=== PATIENT | female | born 1965 | race Caucasian/White ===

== ENCOUNTER → 2022-01-26 | Outpatient (CLI) | payer BC | LOC: RAD 13:21 | DX: M25.50 Pain in unspecified joint (principal); M54.9 Dorsalgia, unspecified; M47.816 Spondylosis without myelopathy or radiculopathy, lumbar region | CPT/HCPCS: 72110; 73522; 73562 ==

== ENCOUNTER → 2022-02-03 | Outpatient (CLI) | payer BC | LOC: KOH-I 13:50 | DX: M54.9 Dorsalgia, unspecified (principal); R22.2 Localized swelling, mass and lump, trunk; R22.41 Localized swelling, mass and lump, right lower limb; M51.36 Other intervertebral disc degeneration, lumbar region; M47.816 Spondylosis without myelopathy or radiculopathy, lumbar region; M48.061 Spinal stenosis, lumbar region without neurogenic claudication | CPT/HCPCS: 72148; 76536; 76882 ==